=== PATIENT | female | born 1960 | race Caucasian/White ===

== ENCOUNTER 2016-08-23 21:15 | Emergency (ER) | payer OTHER ==
[~2016-08-23 21:15] MED LIST: MOTRIN 600 MG600 MG PO; OXYCODONE HYDRO15 MG PO; PROAIR HFA0.09 MG/Ac INH; SPIRIVA 18 MCG18 MCG INH
--- NOTE | 2016-08-23 22:00 | RADIOLOGY REPORT ---
EXAMINATION: XR TOES, LEFT CLINICAL INFORMATION: Pain following injury. COMPARISON: None TECHNIQUE: AP view of the left foot is provided along with 2 views of the third digit. FINDINGS: There is a nondisplaced fracture through the midportion of the third distal phalanx. There is associated soft tissue swelling. IMPRESSION: Nondisplaced third distal phalanx fracture.
[2016-08-23] MEDS ORDERED: ALBUTEROL2.5 MG/3 M INH/SOL (22:12)
[2016-08-23] MEDS ORDERED: SPIRIVA18 MCG INH (22:12)
[2016-08-23] MEDS ORDERED: PROAIR HFA8.5 GM INH (22:13)
--- NOTE | 2016-08-23 22:30 | ED UPPER/LOWER EXTREMITY COMPL ---
History of Present Illness General Chief Complaint: Foot or Ankle Injury Stated Complaint: L FOOT PAIN, DROPPED BOX ON IT TODAY Source: patient Exam Limitations: no limitations Vital Signs & Intake/Output Vital Signs & Intake/Output Vital Signs Date Time Temp Pulse Resp B/P B/P Pulse O2 O2 Flow FiO2 Mean Ox Delivery Rate 08/23 2300 97.3 85 18 156/92 96 Room Air 08/23 2122 99.0 96 20 158/98 98 Room Air ED Intake and Output 08/24 0000 08/23 1200 Intake Total Output Total Balance Patient 0 lb Weight Allergies Coded Allergies: tramadol (EXACERBATES COPD, DYSPNEA 08/23/16) Reconcile Medications Albuterol Sulfate 2.5 MG/3 ML (0.083 %) VIAL.NEB 1 Vial INH/EVERETTE BID PRN COPD (Reported) Albuterol Sulfate (Proair Hfa) 90 MCG HFA.AER.AD 2 PUF INH Q4-6H PRN COPD ( Reported) Ibuprofen 600 MG TABLET 1 TAB PO TID PRN pain with food Tiotropium [place] (Spiriva) 18 MCG CAP.W.DEV 1 CAP INH DAILY COPD (Reported) Triage Note: PT TO ED C/O 3RD TOE LEFT FOOT PAIN S/P DROPPING BOX ONIT AT 5 PM TODAY. BRUISE NOTED Triage Nurses Notes Reviewed? yes Onset: Abrupt Duration: hour(s): Timing: single episode today Severity: mild, moderate Pain/Injury Location: Left: 3rd toe. Method of Injury: direct blow Modifying Factors: Worsens With: movement. Associated Symptoms: left 3rd toe pain HPI: 56 yo woman presents with left 3rd toe pain after she accidently dropped a brick on it while helping her family move. She notes pain and bruising, but is able to walk and has no other injuries or concerns. Past History Travel History Traveled to [place] past 21 day No Medical History Any Pertinent Medical History? see below for history Respiratory: COPD Psychiatric: anxiety Surgical History Surgical History: non-contributory Psychosocial History What is your primary language Lithuanian Tobacco Use: Current Daily Use Daily Tobacco Use Amount/Type: => 5 Cigarettes daily ETOH Use: denies use Illicit Drug Use: denies illicit drug use Family History Hx Contributory? No Review of Systems Review of Systems Constitutional: Reports: no symptoms. EENTM: Reports: no symptoms. Respiratory: Reports: no symptoms. Cardiovascular: Reports: no symptoms. Gastrointestinal/Abdominal: Reports: no symptoms. Genitourinary: Reports: no symptoms. Musculoskeletal: Reports: no symptoms. Skin: Reports: no symptoms. Neurological/Psychological: Reports: no symptoms. Hematologic/Endocrine: Reports: no symptoms. Immunological: Reports: no symptoms. All Other Systems: Reviewed and Negative Physical Exam Physical Exam General Appearance: well developed/nourished, mild distress Head: atraumatic Eyes: Bilateral: PERRL, EOMI. Ears, Nose, Throat: normal pharynx, normal ENT inspection, hearing grossly normal Neck: normal inspection, supple Cardiovascular/Respiratory: regular rate/rhythm Back: normal inspection Foot Left: distal third toe with tenderness, ecchymosis, no deformity. Skin: intact, normal color, warm/dry Lymphatic: no anterior cervical stan Progress Differential Diagnosis: contusion, fracture, sprain Plan of Care: toe xray - left 3rd distal phalanx fx, distal, non displaced. Comments: PATIENT: PEG SRINIVASAN PRESENT AGE: 56 PATIENT ACCOUNT NO: [id number] : 62 LOCATION: [facility] ORDERING PHYSICIAN: VALERIE JOSUE MD SERVICE DATE: 08/23/16 EXAM TYPE: RAD - XRY-TOES, LEFT EXAMINATION: XR TOES, LEFT CLINICAL INFORMATION: Pain following injury. COMPARISON: None TECHNIQUE: AP view of the left foot is provided along with 2 views of the third digit. FINDINGS: There is a nondisplaced fracture through the midportion of the third distal phalanx. There is associated soft tissue swelling. IMPRESSION: Nondisplaced third distal phalanx fracture. DICTATED BY: JASMIN LIM MD DATE/TIME DICTATED:08/23/162156 BAR ASSISTANT:DOUG DATE/TIME TRANSCRIBED:08/23/162156 CONFIDENTIAL, DO NOT COPY WITHOUT APPROPRIATE AUTHORIZATION. <Electronically signed in Other Vendor System> SIGNED BY: JASMIN LIM MD 08/23/162199 Departure Departure Disposition: HOME OR SELF CARE Condition: Stable Clinical Impression Primary Impression: Fracture of distal phalanx of toe Referrals: PATIENT HAS NO PRIMARY CARE DR (PCP/Family) Departure Forms: Customer Survey General Discharge Information Prescriptions: Current Visit Scripts Ibuprofen 1 TAB PO TID PRN pain #30 TAB with food Comments 3rd toe "ozzie taped" by to toes #2 and #4. encouraged follow up with orthopedist.
[2016-08-23] MEDS ORDERED: IBUPROFEN600 M1 PO (22:37)
[2016-08-23 23:00] VITALS: BP 156/92
== END 2016-08-23 23:33 ==
LOC: ERH 21:15
DX: S92.532A Displaced fracture of distal phalanx of left lesser toe(s), initial encounter for closed fracture (principal); W20.8XXA Other cause of strike by thrown, projected or falling object, initial encounter; Y93.E6 Activity, residential relocation; Y92.9 Unspecified place or not applicable
CPT/HCPCS: 73660-LT